=== PATIENT | male | born 1940 | race Caucasian/White ===

== ENCOUNTER 2016-04-18 05:41 | Emergency (ER) | payer OTHER, MEDICARE ==
[~2016-04-18] VITALS: Ht 175.3 cm; Wt 83.9 kg
[2016-04-18 06:53] LABS: ABSOLUTE BASOPHIL COUNT 0.1 /CUMM (0.0-0.2); ABSOLUTE EOSINOPHIL COUNT 0 /CUMM (0.0-0.7); ABSOLUTE GRANULOCYTE CT 8.9 /CUMM (1.4-6.5); ABSOLUTE LYMPH COUNT 0.7 /CUMM (1.2-3.4); ABSOLUTE MONOCYTE COUNT 0.7 /CUMM (0.10-0.60); BASOPHIL % 0.5 % (0.0-2.0); EOSINOPHIL % 0.1 % (0-5); GRANULOCYTE % 85.7 % (42.2-75.2); HEMATOCRIT 26.9 % (42-52); MEAN CORPUSCULAR HGB 30.8 PG (27.0-31.0); MEAN CORPUSCULAR HGB CONC 33.9 G/DL (33.0-37.0); MEAN CORPUSCULAR VOLUME 90.8 FL (80.0-94.0); PLATELET COUNT 236 /CUMM (130-400); RBC DISTRIBUTION WIDTH 14.1 % (11.5-14.5); RED BLOOD CELL CT 2.96 /CUMM (4.70-6.10); WHITE BLOOD CELL COUNT 10.4 /CUMM (4.8-10.8)
--- NOTE | 2016-04-18 06:53 | ED NECK/BACK PAIN COMPLAINT ---
History of Present Illness General Chief Complaint: Abdominal Pain/Flank Pain Stated Complaint: "BIBA LOWER ABD PAIN RADIATES TO BACK" Source: patient, family, old records, EMS Exam Limitations: no limitations Vital Signs & Intake/Output Vital Signs & Intake/Output Vital Signs Date Time Temp Pulse Resp B/P Pulse O2 O2 Flow FiO2 Ox Delivery Rate 04/18 0944 99.2 95 18 132/61 91 Room Air 04/18 0753 99.3 95 20 132/60 95 Room Air 04/18 0601 95 Room Air 04/18 0556 99.6 98 18 164/75 95 Room Air Triage Note: PT BIBA FROM HOME FOR SEVERE INTERMITTENT ABDOMINAL PAIN X2 WEEKS. PT STATES THAT PAIN IN ABDOMEN RADIATES TO LOWER BACK. PT'S LAST BM WAS ON THURSDAY, PT STATES THIS IS NOT REGULAR FOR HIM, BUT HE HAS NOT BEEN EATING DUE TO PAIN, SO HE HAS NOT HAD A BOWEL MOVEMENT. PT ALSO COMPLAINS OF DIFFICULTY WITH URINATION. PT STATES THAT IT TAKES A FEW MINUTES FOR HIM TO GET A URINARY STREAM GOING, BUT DENIES BURNING AND DENIES PAIN WITH URINATION. PT ARRIVES TO ED ALERT AND ORIENTED. PT EXPERIENCES SEVERE PAIN WITH POSITION CHANGE FROM EMS STRETCHER TO ED STRETCHER. PT STATES THAT HE HAS BEEN TAKING HYDROCODONE WITH ACETAMINOPHEN FOR THE ABDOMINAL AND BACK PAIN WITH LITTLE RELIEF. TEMP. 99.6 UPON ARRIVAL. Triage Nurses Notes Reviewed? yes Onset: Last week Duration: week(s):, constant, continues in ED, getting worse Timing: recent history Quality/Severity: severe, sharpness Location: lumbar spine, paraspinous muscles Radiation: abdomen Context: turning/bending Method of Injury: unknown Loss of Consciousness: no loss of consciousness Modifying Factors: immobilization, movement Associated Symptoms: abdominal pain, muscle spasm HPI: Patient reports for many years having annual episodes of low back pain treated with Vicodin and Flexeril anti-inflammatory lasting about a week. He had x-rays reportedly showing degenerative disease in his spine. 2 weeks prior to admission he reports a severe low back pain on the left radiating to his left abdomen worse with turning bending improved with immobilization no response from his previous medications. He denies fever chills nausea vomiting diarrhea abdominal pain chest pain shortness breath headache dysuria rash bleeding, or exertion. (MALORIE ALVARADO,PARIS) Allergies Coded Allergies: No Known Allergies (04/18/16) Reconcile Medications Acetaminophen (Tylenol) 325 MG TABLET PAIN (Reported) Aspirin (Aspirin*) 81 MG TAB.CHEW 1 TAB PO 1300 HEART HEALTH (Reported) Calcium Citrate/Vitamin D3 (Citracal + D Maximum Caplet) 315 MG-250 UNIT TABLET 1 TAB PO BID SUPPLEMENT (Reported) Cholecalciferol (Vitamin D3) (Vitamin D3) 2,000 UNIT TABLET 1 TAB PO DAILY SUPPLEMENT (Reported) Methylcellulose (Fiber) 500 MG TABLET 1 TAB PO BID SUPPLEMENT (Reported) Methylprednisolone. (Medrol) 4 MG TAB.DS.PK 1 DP PO AD BACK PAIN 6 on day 1 then reduce by one tablet daily until gone Oxycodone HCl/Acetaminophen (Percocet 5-325 MG Tablet) 5 MG-325 MG TABLET 1-2 TAB PO Q6P PRN PAIN Pravastatin Sodium (Pravachol) 20 MG TABLET 1 TAB PO QPM CHOLESTEROL ( Reported) Primidone 50 MG TABLET 0.25 TAB PO QPM UNKNOWN (Reported) Ramipril 10 MG CAPSULE 1 CAP PO BID UNKNOWN (Reported) Sulfasalazine (Azulfidine) 500 MG TABLET 1 TAB PO BID UNKNOWN (Reported) (AILYN ALVARADO,OSMAR Smith) Past History Travel History Traveled to [place] past 21 day No Medical History Any Pertinent Medical History? see below for history Cardiovascular: hypertension, HIGH CHOLESTEROL VALVE REPLACEMENT Surgical History Surgical History: non-contributory Psychosocial History What is your primary language Swedish Tobacco Use: Never used ETOH Use: occasional use Illicit Drug Use: denies illicit drug use Family History Hx Contributory? No (PARIS ESPANA MD) Review of Systems Review of Systems Constitutional: Reports: no symptoms. Eyes: Reports: no symptoms. Ears, Nose, Throat, Mouth: Reports: no symptoms. Respiratory: Reports: no symptoms. Cardiovascular: Reports: no symptoms. Gastrointestinal/Abdominal: Reports: no symptoms. Musculoskeletal: Reports: see HPI, back pain. Skin: Reports: no symptoms. Neurological/Psychological: Reports: no symptoms. All Other Systems: Reviewed and Negative (PARIS ESPANA MD) Physical Exam Physical Exam General Appearance: well developed/nourished, alert, awake, anxious, severe distress Head: atraumatic, normal appearance Eyes: Bilateral: normal appearance, PERRL, EOMI, normal inspection. Ears, Nose, Throat, Mouth: hearing grossly normal, moist mucous membrane Neck: normal inspection, supple, full range of motion, normal alignment Respiratory: normal breath sounds Cardiovascular: regular rate/rhythm, normal peripheral pulses, systolic murmur, norml femoral pulses equa Peripheral Pulses: 4+ carotid (R), 4+ carotid (L) Gastrointestinal: normal bowel sounds, soft, non-tender, no organomegaly Back: decreased range of motion, muscle spasm Extremities: non-tender, normal range of motion Straight Leg Raising: Right: Pain at ____ degrees (5). Left: Pain at ____ degrees (5). Sensory: Medial Le: L4R, L4L. Top of Foot: 2: L5R, L5L. Sole of Foot: 2: SIR, ALEX. Motor: Deficit L4 Right: No Deficit L4 Left: No Deficit L5 Right: No Deficit L5 Left: No Deficit S1 Right: No Deficit S1 Right: No DTR: Deficit L4 Left: No Deficit L4 Right: No Deficit S1 Left: No Deficit S1 Right: No Patellar: 2: L4 Right, L4 Left. Neurologic/Psych: awake, alert, oriented x 3, normal mood/affect Skin: intact, normal color, warm/dry (MALORIE ALVARADO,PARIS) Progress Differential Diagnosis: herniated disc, myofascial strain, sciatica, T/L spine injury, ureterolithiasis Plan of Care: Orders Procedure Date/time Status URINALYSIS 04/18 08 Complete MAGNESIUM 04/18 615 Complete COMPREHENSIVE METABOLIC PANEL 04/18 615 Complete CBC WITHOUT DIFFERENTIAL 04/18 615 Complete Current Medications Sig/Chip Start time Last Medication Dose Stop Time Status Admin Dexamethasone 10 MG ONCE ONE 04/18 929 CAN (Decadron Inj) 04/18 930 Methylprednisolone 125 MG ONCE ONE 04/18 929 CAN (Solu Medrol) 04/18 930 Diazepam 10 MG ONCE ONE 04/18 629 CAN (Valium) 04/18 630 Morphine Sulfate 4 MG ONCE ONE 04/18 629 CAN (Morphine) 04/18 06 Laboratory Tests 04/18/16 0825: Urinalysis LIGHT H, Urine Color YEL, Urine Clarity HAZY H, Urine pH 6.0, Ur Specific Evart 1.020, Urine Protein TRACE H, Urine Ketones 15 H, Urine Nitrite NEG, Urine Bilirubin NEG@ICTO, Urine Urobilinogen 0.2, Ur Leukocyte Esterase NEG, Ur Microscopic SEDIMENT EXAMINED, Urine RBC 1-3, Urine WBC 1-3 H, Ur Epithelial Cells RARE, Granular Casts 1-3 H, Urine Mucus FEW, Urine Hemoglobin NEG, Urine Glucose NEG 04/18/16 0630: Anion Gap 10, Estimated GFR > 60, BUN/Creatinine Ratio 23.0, Glucose 84, Calcium 9.2, Magnesium 2.0, Total Bilirubin 0.8, AST 22, ALT 30, Alkaline Phosphatase 70 , Total Protein 6.5, Albumin 3.6, Globulin 2.9, Albumin/Globulin Ratio 1.2, CBC w Diff MAN DIFF ORDERED, RBC 2.96 L, MCV 90.8, MCH 30.8, RDW 14.1, MPV 7.0 L, Gran % 85.7 H, Lymphocytes % 6.9 L, Monocytes % 6.8, Eosinophils % 0.1, Basophils % 0.5, Absolute Granulocytes 8.9 H, Segmented Neutrophils 78 H, Band Neutrophils 10 H, Absolute Lymphocytes 0.7 L, Lymphocytes 5 L, Monocytes 7, Absolute Monocytes 0.7 H, Absolute Eosinophils 0, Absolute Basophils 0.1, Platelet Estimate ADEQUATE, Normocytic RBCs VERIFIED, Normochromic RBCs VERIFIED , PUBS MCHC 33.9, Fld Total RBCs Counted 100 Diagnostic Imaging: Viewed by Me: CT Scan. Discussed w/RAD: CT Scan. Hand-Off Endorsed To: AILYN ALVARADO,OSMAR Smith Endorsed Time: 730 Pending: CT, labs (MALORIE ALVARADO,PARIS) Radiology Impression: PATIENT: KYLE GARCIA PRESENT AGE: 76 PATIENT ACCOUNT NO: [id number] : 41 LOCATION: [facility] ORDERING PHYSICIAN: PARIS ESPANA MD SERVICE DATE: 04/18/16 EXAM TYPE: CAT - CT LUMB SPINE WO IV CONTRAST EXAMINATION: CT LUMBAR SPINE WITHOUT CONTRAST CLINICAL INFORMATION: Recurrent severe low back pain COMPARISON: None TECHNIQUE: Helical non-contrast CT images were obtained through the lumbar spine and 1.25 and 2.5 mm axial reconstructions were reviewed along with sagittal and coronal MPRs. DLP : 928.48 mGy-cm FINDINGS: There is minimal grade 1 retrolisthesis of L2 on L3. Vertebral body heights are maintained. Multilevel endplate osteophytes are present throughout the lumbar spine. No acute fracture is seen. There is atherosclerotic calcification along the aorta. Colonic diverticulosis is noted. SPINAL LEVELS: T12-L1: Disc height is relatively well maintained. No significant central or foraminal stenosis identified. L1-L2: Degenerative disc disease with vacuum disc phenomena. Slight loss of disc space height. No significant central or foraminal stenosis identified. L2-L3: Degenerative disc disease with vacuum disc phenomenon. Disc space height is relatively well preserved. Broad-based disc protrusion. Mild facet arthropathy as well as some thickening of the ligamentum flavum, with suspected mild to moderate central stenosis. L3-L4: Broad-based disc protrusion. Disc space height is maintained. Thickening of the ligamentum flavum as well as facet arthropathy. Moderate to severe central stenosis is suspected. L4-L5: Broad-based disc protrusion. Disc space height is relatively well preserved. Facet arthropathy as well as thickening of ligamentum flavum. Severe central stenosis is suspected. L5-S1: Mild disc protrusion. Disc space height is relatively well preserved. Facet arthropathy. No significant central stenosis. IMPRESSION: Multilevel degenerative changes as described above. Suspected severe central stenosis at the L4-L5 level, moderate to severe central stenosis at L3-L4, and mild to moderate central stenosis at L2-L3. Soft tissue detail at these levels may be better defined with MRI. DICTATED BY: BRIA MICHAEL MD DATE/TIME DICTATED:04/18/16803 SAFE TECHNICIAN:MAKAYLA DATE/TIME TRANSCRIBED:04/18/16803 CONFIDENTIAL, DO NOT COPY WITHOUT APPROPRIATE AUTHORIZATION. <Electronically signed in Other Vendor System> SIGNED BY: BRIA MICHAEL MD 04/18/16819 Comments: CT RESULTS AND LAB RESULTS DISCUSSED WITH PT. HIS PAIN HAS DECREASED TO 5 OUT OF 10 WHILE LAYING STILL IN BED. WILL ATTEMPT AMBULATION. REFELXES IN LOWER EXT: 1+ BILATERALLY AND SYMMETRICALLY. SENSATION IS INTACT. PT UNABLE TO EVEN SIT UP IN BED WITH MAX ASSIST SECONDARY TO PAIN. CASE DISCUSSED WITH DR. HOPE, WHO REVIEWED THE FILMS, FACET DISEASE, DECADRON 10MG IV AND IF HE IS FEELING BETTER, HOME WITH STEROIDS AND PAIN MEDS AND SHE WILL SEE HIM IN THE OFFICE. THIS WAS DISCUSSED WITH THE PATIENT AND HIS . Pain much improved at Decadron. Patient intubated in the emergency department with use of a walker. At this point patient is stable for discharge with follow -up with Dr. HOPE (AILYN ALVARADO,OSMAR Smith) Departure Departure Condition: Stable Clinical Impression Primary Impression: Acute myofascial pain Departure Forms: Customer Survey General Discharge Information (MALORIE ALVARADO,PARIS) Departure Disposition: HOME OR SELF CARE Referrals: HERMINIA ALVARADO,LUCAS Ward UNKNOWN (PCP/Family) Additional Instructions: FOLLOW UP WITH DR. HOPE TAKE STEROIDS PRESCRIBED TAKE PAIN MEDICATIONS NEEDED. NARCOTIC PAIN MEDICATIONS ARE VERY CONSTIPATING SO TAKE A STOOL SOFTENER WHILE ON THEM. Prescriptions: Current Visit Scripts Methylprednisolone. (Medrol) 1 DP PO AD #1 DP 6 on day 1 then reduce by one tablet daily until gone Oxycodone HCl/Acetaminophen (Percocet 5-325 MG Tablet) 1-2 TAB PO Q6P PRN PAIN #20 TAB (AILYN ALVARADO,OSMAR Smith)
[2016-04-18] MEDS ORDERED: AZULFIDINE500 M1 PO (07:47)
[2016-04-18] MEDS ORDERED: RAMIPRIL10 M1 PO (07:47)
[2016-04-18] MEDS ORDERED: VITAMIN D32000 UNI1 PO (07:48)
[2016-04-18] MEDS ORDERED: PRAVACHOL20 M2 PO (07:48)
[2016-04-18] MEDS ORDERED: CITRACAL + D M1 EACH PO (07:49)
[2016-04-18] MEDS ORDERED: FIBER500 MG PO (07:49)
[2016-04-18] MEDS ORDERED: TYLENOL325 M1 PO (07:50)
[2016-04-18] MEDS ORDERED: ASPIRIN81 M4 PO (07:50)
[2016-04-18] MEDS ORDERED: PRIMIDONE50 M1 PO (07:51)
--- NOTE | 2016-04-18 08:20 | CT SCAN REPORT ---
EXAMINATION: CT LUMBAR SPINE WITHOUT CONTRAST CLINICAL INFORMATION: Recurrent severe low back pain COMPARISON: None TECHNIQUE: Helical non-contrast CT images were obtained through the lumbar spine and 1.25 and 2.5 mm axial reconstructions were reviewed along with sagittal and coronal MPRs. DLP: 928.48 mGy-cm FINDINGS: There is minimal grade 1 retrolisthesis of L2 on L3. Vertebral body heights are maintained. Multilevel endplate osteophytes are present throughout the lumbar spine. No acute fracture is seen. There is atherosclerotic calcification along the aorta. Colonic diverticulosis is noted. SPINAL LEVELS: T12-L1: Disc height is relatively well maintained. No significant central or foraminal stenosis identified. L1-L2: Degenerative disc disease with vacuum disc phenomena. Slight loss of disc space height. No significant central or foraminal stenosis identified. L2-L3: Degenerative disc disease with vacuum disc phenomenon. Disc space height is relatively well preserved. Broad-based disc protrusion. Mild facet arthropathy as well as some thickening of the ligamentum flavum, with suspected mild to moderate central stenosis. L3-L4: Broad-based disc protrusion. Disc space height is maintained. Thickening of the ligamentum flavum as well as facet arthropathy. Moderate to severe central stenosis is suspected. L4-L5: Broad-based disc protrusion. Disc space height is relatively well preserved. Facet arthropathy as well as thickening of ligamentum flavum. Severe central stenosis is suspected. L5-S1: Mild disc protrusion. Disc space height is relatively well preserved. Facet arthropathy. No significant central stenosis. IMPRESSION: Multilevel degenerative changes as described above. Suspected severe central stenosis at the L4-L5 level, moderate to severe central stenosis at L3-L4, and mild to moderate central stenosis at L2-L3. Soft tissue detail at these levels may be better defined with MRI.
[2016-04-18] MEDS ORDERED: MEDROL4 M2 PO (10:37)
[2016-04-18] MEDS ORDERED: PERCOCET 5-3251 EACH PO (10:37)
[2016-04-18 10:58] VITALS: BP 130/62
== END 2016-04-18 10:59 ==
LOC: ERH 05:41
PROVIDERS: Emergency Medicine
DX: M79.1 Myalgia (principal); M54.5 Low back pain
CPT/HCPCS: 81001; 96365; 96375; J1100; J1885; J3360